=== PATIENT | male | born 1985 | race Caucasian/White ===

== ENCOUNTER → 2020-08-12 02:30 | Outpatient (CLI) | payer OTHER, SELFPAY ==
[2020-08-12 21:58] LABS: SARS-CoV-2 RNA PCR Negative
== END ==
PROVIDERS: Visit Provider Otolaryngology
DX: Z01.812 Encounter for preprocedural laboratory examination (principal); Z20.822 Contact with and (suspected) exposure to COVID-19
CPT/HCPCS: C9803; U0003; U0005

== ENCOUNTER 2020-08-15 01:15 | Day surgery (SDC) | payer OTHER, SELFPAY ==
[2020-08-11 12:50] VITALS: BMI 18.6
[2020-08-15] VITALS (10 sets, daily range): BP systolic 107–121; BP diastolic 70–84; PULSE 56–93; RESP 10–18; TEMP 36.4; O2SAT 99–100
[2020-08-15] MEDS: ACETAMINOPHEN 500 MG TABLET 1000 MG PO (09:25)
--- NOTE | 2020-08-15 09:36 | WPDANESEPPF ---
Anes - Initial Pre Proc Eval Procedure: Operation Date: 08/15/20 11:00 Proposed Procedures p Image Guided Possible Right Ethmoidectomy, Right Maxillary Antrostomy, Possible Tissue Removal Right Maxillary, Right Turbinate Reduction - Kurt Bae MD Date/Time: 08/15/20 09:36 Surgeon: Kurt Bae MD Pre Op Diagnosis: Chronic Maxillary Sinusitis Patient Data Age: 34 Gender: M Height: 6 ft 2 in Weight: 64.6 kg Allergies Allergy/AdvReac Type Severity Reaction Status Date / Time No Known Allergies Allergy Mild Verified 08/15/20 09:19 Home Medications Medication Instructions Recorded Confirmed Type No Home Medications 08/11/20 08/15/20 History Patient hx anesthesia problems: none Family hx anesthesia problems: none [facility] Past Medical History Medical History (Updated 08/15/20 @ 09:31 by [place] Vo MD) GERD (gastroesophageal reflux disease) Social History Social History Smoking status: Never smoker Living arrangements: with family Spiritual care concerns: No Anes - Eval Final PreProcedure Day of Procedure 08/15/20 09:36 Patient weight: normal Heart: regular rate and rhythm Lungs: clear to auscultation Airway: Mallampati scale class II Neurological: alert and oriented Last oral intake: >/= 8 hours ASA classification: II Emergent: no Anesthetic plan: proceed Anesthesia type and monitoring: general ETT and standard monitoring Informed Consent: The patient's anesthetic plan and its attendant risks and benefits were discussed with the patient/family/POA. Questions were solicited and answers provided to the satisfaction of the patient/family/POA.
[2020-08-15] MEDS: LACTATED RINGERS 1,000 ML 30 ML IV CONT ×2 (09:37→11:25)
[2020-08-15] MEDS: OXYMETAZOLINE HCL 0.05% NAS 15 ML BTL (*BKC) 1 SPRAY NASAL (09:38)
--- NOTE | 2020-08-15 10:01 | WPDHPUPDATE1 ---
History and Physical Update Update Date/Time: 08/15/20 10:01 History and Physical has been reviewed, including an updated exam of the patient. There are NO changes in the patient's condition. Risks, benefits, and alternatives have been discussed and questions answered. Patient agrees to proceed with procedure.
[2020-08-15] MEDS: ceFAZolin 2 GM/D5W 50 ML 2 GM/50 ML BAG IVPB (10:16)
[2020-08-15] MEDS: LIDO 1%/EPINEPHRINE 1:100,000 50 ML VIAL INFILTRATE (11:01)
[2020-08-15] MEDS: MUPIROCIN 2% OINT 22 GM TUBE 1 APPLIC TOPICAL (11:02)
--- NOTE | 2020-08-15 11:08 | P.OP_ITS ---
Procedure Note - Detailed Date of procedure: 08/15/20 Pre-op diagnosis: Chronic Maxillary Sinusitis Post-op diagnosis: same Procedure performed: Right maxillary antrostomy, anterior ethmoidectomy, bilateral turbinoplasty Description of procedure: On the date of procedure the patient was met in the preoperative area and risk and benefits of the procedure reviewed with the patient as documented in the H&P and they elected to proceed with surgery. Patient was brought back to the operating room by the anesthesia team and underwent general endotracheal anesthesia. Once an adequate plane of anesthesia was obtained a timeout was performed to assure the patient identification the patient here to be performed were correct. They were.The patient was then prepped and draped in the normal fashion for endoscopic sinus surgery. The diffusion image guidance system was calibrated and used for the entire case. Afrin-soaked pledgets were placed in the nasal cavities bilaterally. The entire case was performed under endoscopic visualization. Nasal endoscopy was performed at the beginning of the case. 1% lidocaine with 1:100,000 epinephrine was then injected into the root of the middle turbinate and lateral nasal wall. Attention was first directed towards the right side. The middle turbinate was medialized and the osteomeatal complex was identified with a edmond probe. Using a 90 degree backbiter, the uncinate process was reflected anteriorly and removed using a combination of sharp and powered dissection. The uncinate had been lateralized and plsatered against the lamina paprycea. This was carefully elevated and then the maxillary antrostomy was created and widened using straight marielos-cut forceps, backbiter, and microdebrider. Due to the angle, the rad-40 microdebrider was utilized. Inspissated thick white mucous was then suctioned out of the right maxillary sinus. The orbital floor and lamina were noted to be depressed inferiorly and extreme care taken to avoid injury. Copious mucous removed from the sinus ent irely. Photos taken. Next, anterior ethmoidectomy performed with rad-40 microdebrider under image guidance. The sinus was widely patent and no further infection noted. Nasopore was placed in the right ethmoid cavity. Hemostasis ensured. Lastly, the bilateral inferior turbiantes were reduced submucosally using 2mm microdebrider and then outfractured with a sayer elevator. This significantly opened the airway. At this point, the procedure was concluded. Care the patient was transferred back to the anesthesia team and the patient was awoke in the operating room and transferred back to the PACU in stable condition. Anesthesia: GETA Surgeon: Kurt Bae MD Estimated blood loss (mL): 10 Drains: No Packing: No Pathology: none sent Complications: No immediate complications Condition: stable Disposition: same day Findings: Right maxillary chronic sinusitis
== END 2020-08-15 13:30 | disposition home or self-care (01) ==
PROVIDERS: PCP Nurse Practitioner Family; Visit Provider Otolaryngology
PROC: (CPT 31256; principal; 2020-08-15 11:00)
DX: J32.0 Chronic maxillary sinusitis (principal); K21.9 Gastro-esophageal reflux disease without esophagitis
CPT/HCPCS: 31256; 31254; 30140; 61782; A9270; C9803; J0330; J0690; J1100; J2250; J2405; J2704; J3010; J7040; J7120; U0003; U0005

== ENCOUNTER → 2020-09-05 08:36 | Outpatient (CLI) | payer OTHER, SELFPAY ==
[2020-09-05 21:06] LABS: SARS-CoV-2 RNA PCR Negative
== END ==
PROVIDERS: PCP Urology; Visit Provider Urology
DX: Z01.812 Encounter for preprocedural laboratory examination (principal); Z20.822 Contact with and (suspected) exposure to COVID-19
CPT/HCPCS: C9803; U0003; U0005